=== PATIENT | male | born 1980 | race Caucasian/White ===

== ENCOUNTER → 2019-03-24 | Outpatient (CLI) | payer BC ==
[2019-03-24 08:39] LABS: Basophils # (auto) 0 uL; Basophils % (auto) 0.7 % (0.0-2.0); Eosinophils # (auto) 0.2 uL; Eosinophils % (auto) 3.6 % (0.0-7.0); Hematocrit 47.3 % (41.0-53.0); Hemoglobin 16.3 g/dL (13.5-17.5); Lymphocytes # (auto) 2.4 uL; Lymphocytes % (auto) 38.4 % (10.0-50.0); Mean Corpuscular Hemoglobin 31.1 pg (28.0-32.0); Mean Corpuscular Hgb Conc. 34.4 g/dL (32.0-36.0); Mean Corpuscular Volume 90.4 fL (80.0-100.0); Monocytes # (auto) 0.5 uL; Monocytes % (auto) 8.8 % (0.0-12.0); Neutrophils % (auto) 48.5 % (37.0-80.0); Nucleated Red Blood Cells % 0.1 %; Platelet Count (auto) 237 10^3/uL (140-450); Red Blood Cells 5.23 10^6/uL (4.5-5.90); Red Cell Distribution Width 13.5 % (11.8-14.3); White Blood Cell 6.2 10^3/uL (4.4-10.8)
[2019-03-24 08:50] LABS: Urine Bacteria NONE SEEN /hpf (None Seen); Urine Blood Negative /uL (Negative); Urine Mucus FEW (None Seen); Urine Specific Gravity 1.022 (1.001-1.035); Urine WBC 1 /hpf (0 - 3)
[2019-03-24 09:12] LABS: Alanine Aminotransferase 83 U/L (16-61); Albumin 4.2 g/dL (3.4-5.0); Anion Gap 6 (5-15); Aspartate Aminotransferase 41 U/L (15-37); BUN/Creatinine Ratio 12.1; Blood Urea Nitrogen 13 mg/dL (7-18); Calcium 8.8 mg/dL (8.5-10.1); Carbon Dioxide 28 mmol/L (21-32); Chloride 108 mmol/L (98-107); GFR African American 98 mL/min; GFR Non-African American 81 mL/min; Glucose 101 mg/dL (74-106); Potassium 4.2 mmol/L (3.5-5.1); Sodium 142 mmol/L (136-145); Uric Acid 10.2 mg/dL (3.5-7.2)
[2019-03-24 09:16] LABS: Alkaline Phosphatase 76 U/L (45-117); Bilirubin, Total 0.4 mg/dL (0.2-1.0); Cholesterol 236 mg/dL (< 200); HDL Cholesterol 40 mg/dL (40-59); Total Protein 7.9 g/dL (6.4-8.2); Triglycerides 616 mg/dL (< 150)
== END | disposition home or self-care (01) ==
LOC: LAB 08:10
PROVIDERS: ATTEND Nurse Practitioner
DX: E78.5 Hyperlipidemia, unspecified (principal)
CPT/HCPCS: 36415; 80053; 80061; 81001; 82306; 83036; 83880; 84443; 84550; 85025; 85652

== ENCOUNTER → 2020-11-15 | Outpatient (CLI) | payer BC | END | disposition home or self-care (01) | LOC: LAB 07:35 | DX: Z31.440 Encounter of male for testing for genetic disease carrier status for procreative management (principal) | CPT/HCPCS: 81220 ==

== ENCOUNTER → 2021-02-13 | Outpatient (CLI) | payer BC ==
[2021-02-13 12:51] LABS: Urine WBC None Seen /hpf (0 - 3)
[2021-02-13 12:56] LABS: Basophils # (auto) 0 10 ^3/uL (0-0.2); Basophils % (auto) 0.5 % (0.0-2.0); Eosinophils # (auto) 0.2 10 ^3/uL (0-0.8); Eosinophils % (auto) 2.4 % (0.0-7.0); Hemoglobin 14.3 g/dL (13.5-17.5); Lymphocytes # (auto) 2.4 10 ^3/uL (0.4-5.4); Lymphocytes % (auto) 29.7 % (10.0-50.0); Mean Corpuscular Hemoglobin 30.4 pg (28.0-32.0); Mean Corpuscular Hgb Conc. 34.7 g/dL (32.0-36.0); Mean Corpuscular Volume 87.6 fL (80.0-100.0); Monocytes # (auto) 0.5 10 ^3/uL (0-1.3); Monocytes % (auto) 6.6 % (0.0-12.0); Neutrophils # (auto) 4.9 10 ^3/uL (1.6-8.6); Neutrophils % (auto) 60.8 % (37.0-80.0); Nucleated Red Blood Cells % 0.1 %; Platelet Count (auto) 268 10^3/uL (140-450); Red Blood Cells 4.68 10^6/uL (4.5-5.90); Red Cell Distribution Width 13.1 % (11.8-14.3)
[2021-02-13 12:57] LABS: Urine Bacteria NONE SEEN /hpf (None Seen); Urine Blood Negative /uL (Negative); Urine Specific Gravity 1.026 (1.001-1.035)
[2021-02-13 14:58] LABS: Albumin 4.1 g/dL (3.4-5.0); Calcium 9.8 mg/dL (8.5-10.1); Potassium 3.7 mmol/L (3.5-5.1)
[2021-02-13 15:10] LABS: BUN/Creatinine Ratio 23.1; Bilirubin, Total 0.3 mg/dL (0.2-1.0); Total Protein 7.7 g/dL (6.4-8.2)
== END | disposition home or self-care (01) ==
LOC: LAB 12:39
PROVIDERS: ATTEND Nurse Practitioner
DX: I10 Essential (primary) hypertension (principal); E78.5 Hyperlipidemia, unspecified
CPT/HCPCS: 36415; 80053; 80061; 81001; 85025

== ENCOUNTER → 2021-04-06 | Outpatient (CLI) | payer BC ==
[2021-04-06 09:57] LABS: Albumin 3.7 g/dL (3.4-5.0); BUN/Creatinine Ratio 22.1; Bilirubin, Total 0.5 mg/dL (0.2-1.0); Calcium 8.6 mg/dL (8.5-10.1); Total Protein 7.1 g/dL (6.4-8.2)
== END | disposition home or self-care (01) ==
LOC: LAB 08:43
PROVIDERS: ATTEND Nurse Practitioner
DX: I10 Essential (primary) hypertension (principal); E78.5 Hyperlipidemia, unspecified
CPT/HCPCS: 36415; 80053; 80061

== ENCOUNTER → 2021-09-24 | Outpatient (CLI) | payer BC ==
[2021-09-24 08:42] LABS: Basophils # (auto) 0 10 ^3/uL (0-0.2); Basophils % (auto) 0.6 % (0.0-2.0); Eosinophils # (auto) 0.2 10 ^3/uL (0-0.8); Eosinophils % (auto) 3.3 % (0.0-7.0); Hematocrit 44.9 % (41.0-53.0); Hemoglobin 15.5 g/dL (13.5-17.5); Lymphocytes # (auto) 1.8 10 ^3/uL (0.4-5.4); Lymphocytes % (auto) 24.7 % (10.0-50.0); Mean Corpuscular Hgb Conc. 34.6 g/dL (32.0-36.0); Mean Corpuscular Volume 89.7 fL (80.0-100.0); Monocytes # (auto) 0.5 10 ^3/uL (0-1.3); Monocytes % (auto) 7.2 % (0.0-12.0); Neutrophils # (auto) 4.7 10 ^3/uL (1.6-8.6); Neutrophils % (auto) 64.2 % (37.0-80.0); Nucleated Red Blood Cells % 0.6 %; Red Blood Cells 5.01 10^6/uL (4.5-5.90); Red Cell Distribution Width 13.2 % (11.8-14.3); White Blood Cell 7.4 10^3/uL (4.4-10.8)
[2021-09-24 10:14] LABS: Chloride 108 mmol/L (98-107); Potassium 4.5 mmol/L (3.5-5.1); Sodium 137 mmol/L (136-145)
[2021-09-24 10:24] LABS: Alanine Aminotransferase 46 U/L (16-61); Albumin 3.7 g/dL (3.4-5.0); Alkaline Phosphatase 78 U/L (45-117); Anion Gap 8 (5-15); Aspartate Aminotransferase 26 U/L (15-37); BUN/Creatinine Ratio 17.8; Bilirubin, Total 0.4 mg/dL (0.2-1.0); Blood Urea Nitrogen 16 mg/dL (7-18); Calcium 8.9 mg/dL (8.5-10.1); Carbon Dioxide 21 mmol/L (21-32); Cholesterol 230 mg/dL (< 200); GFR African American 118 mL/min; GFR Non-African American 98 mL/min; Glucose 97 mg/dL (74-106); HDL Cholesterol 43 mg/dL (40-59); Total Protein 7.4 g/dL (6.4-8.2); Triglycerides 489 mg/dL (< 150)
== END | disposition home or self-care (01) ==
LOC: LAB 08:00
PROVIDERS: ATTEND Nurse Practitioner
DX: I10 Essential (primary) hypertension (principal); E78.5 Hyperlipidemia, unspecified
CPT/HCPCS: 36415; 80053; 80061; 85025

== ENCOUNTER → 2022-09-03 | Outpatient (CLI) | payer BC | END | disposition home or self-care (01) | LOC: XYW 07:45 | PROVIDERS: ATTEND Nurse Practitioner Acute Care | DX: I35.8 Other nonrheumatic aortic valve disorders (principal); I11.9 Hypertensive heart disease without heart failure; R07.9 Chest pain, unspecified | CPT/HCPCS: 93306 ==

== ENCOUNTER → 2022-10-17 | Outpatient (CLI) | payer BC ==
[~2022-10-17] VITALS: Ht 172.7 cm; Wt 126.1 kg
== END | disposition home or self-care (01) ==
LOC: XYW 07:31
PROVIDERS: ATTEND Internal Medicine
DX: R07.9 Chest pain, unspecified (principal); I10 Essential (primary) hypertension; E78.5 Hyperlipidemia, unspecified; Z68.41 Body mass index [BMI] 40.0-44.9, adult; Z72.0 Tobacco use
CPT/HCPCS: 78452; 93017; A9500

== ENCOUNTER 2023-02-06 06:59 | Day surgery (SDC) | payer BC ==
[2023-02-03 11:53] LABS: Urine WBC None Seen /hpf (0 - 3)
[2023-02-03 11:59] LABS: Basophils # (auto) 0.1 10 ^3/uL (0-0.2); Basophils % (auto) 0.7 % (0.0-2.0); Eosinophils # (auto) 0.2 10 ^3/uL (0-0.8); Eosinophils % (auto) 1.7 % (0.0-7.0); Hematocrit 45.1 % (41.0-53.0); Hemoglobin 15.5 g/dL (13.5-17.5); Lymphocytes # (auto) 2.3 10 ^3/uL (0.4-5.4); Lymphocytes % (auto) 23.6 % (10.0-50.0); Mean Corpuscular Hemoglobin 29.6 pg (28.0-32.0); Mean Corpuscular Hgb Conc. 34.5 g/dL (32.0-36.0); Mean Corpuscular Volume 85.9 fL (80.0-100.0); Monocytes # (auto) 0.7 10 ^3/uL (0-1.3); Monocytes % (auto) 6.9 % (0.0-12.0); Neutrophils # (auto) 6.7 10 ^3/uL (1.6-8.6); Neutrophils % (auto) 67.1 % (37.0-80.0); Nucleated Red Blood Cells % 0.3 %; Red Blood Cells 5.25 10^6/uL (4.5-5.90); White Blood Cell 9.9 10^3/uL (4.4-10.8)
[2023-02-03 12:23] LABS: Calcium 9.4 mg/dL (8.5-10.1); Potassium 3.9 mmol/L (3.5-5.1)
[2023-02-03 12:24] LABS: INR 0.96 (0.9-1.15); Partial Thromboplastin Time 27.4 sec (24.6-33.4)
[2023-02-03 12:26] LABS: BUN/Creatinine Ratio 14.6 (10.0-20.0)
[2023-02-03 12:27] LABS: Urine Bacteria NONE SEEN /hpf (None Seen); Urine Blood Negative /uL (Negative); Urine Specific Gravity 1.007 (1.001-1.035)
[2023-02-03 12:28] LABS: Bilirubin, Total 0.4 mg/dL (0.2-1.0); Total Protein 7.7 g/dL (6.4-8.2)
[~2023-02-06] VITALS: Ht 172.7 cm; Wt 117.9 kg
[~2023-02-06 06:59] MED LIST: LISI20TA28 PO
[2023-02-06] MEDS ORDERED: KETAMINE 50mg/ML 10ml Vial (500mg/10ml) IV ONE (07:00)
[2023-02-06] MEDS ORDERED: BACITRACIN TOP OINT 1 UD PKG TOP ONE ×2 (07:15→07:35)
[2023-02-06] MEDS ORDERED: GLYCOPYRROLATE 0.2 MG/ML 1ML VIAL ONE (07:54)
[2023-02-06] MEDS ORDERED: LIDOCAINE 1% (LOCAL ANESTH.) PF 5ml SDV ONE (07:54)
[2023-02-06] MEDS ORDERED: ONDANSETRON HCL 4 MG/2 ML VIAL ONE (07:54)
[2023-02-06] MEDS ORDERED: DexAMETHasone SOD PHOS 10MG/1ML VIAL INJ ONE (07:54)
[2023-02-06] MEDS ORDERED: PROPOFOL 10 MG/ML 20 ML IV ONE ×3 (07:54→08:29)
[2023-02-06] MEDS ORDERED: KETOROLAC TROMETH 30 MG/ML 1ML VIAL ONE (07:54)
[2023-02-06] MEDS ORDERED: CIPROFLOXACIN 400MG/200ML 200 ML IV ONE (08:00)
[2023-02-06 09:25] VITALS: BP 106/65
== END 2023-02-06 09:39 | disposition home or self-care (01) ==
LOC: SUR 06:59
PROVIDERS: ATTEND Urology
DX: Z30.2 Encounter for sterilization (principal); Z20.822 Contact with and (suspected) exposure to COVID-19
CPT/HCPCS: 36415; 55250; 80053; 81001; 85025; 85610; 85730; 87086; 88305; J0744; J1100; J1885; J2405; J2704; U0003

== ENCOUNTER 2023-10-29 12:49 | Day surgery (SDC) | payer BC ==
[2023-10-24 09:56] LABS: Basophils # (auto) 0.1 10 ^3/uL (0-0.2); Basophils % (auto) 0.6 % (0.0-2.0); Eosinophils # (auto) 0.3 10 ^3/uL (0-0.8); Eosinophils % (auto) 3.5 % (0.0-7.0); Hematocrit 43.3 % (41.0-53.0); Hemoglobin 14.5 g/dL (13.5-17.5); Lymphocytes # (auto) 2.5 10 ^3/uL (0.4-5.4); Lymphocytes % (auto) 31.4 % (10.0-50.0); Mean Corpuscular Hemoglobin 29.7 pg (28.0-32.0); Mean Corpuscular Hgb Conc. 33.5 g/dL (32.0-36.0); Mean Corpuscular Volume 88.6 fL (80.0-100.0); Monocytes # (auto) 0.6 10 ^3/uL (0-1.3); Monocytes % (auto) 7.9 % (0.0-12.0); Neutrophils # (auto) 4.5 10 ^3/uL (1.6-8.6); Neutrophils % (auto) 56.6 % (37.0-80.0); Nucleated Red Blood Cells % 0.1 %; Red Blood Cells 4.89 10^6/uL (4.5-5.90); Red Cell Distribution Width 12.9 % (11.8-14.3)
[2023-10-24 10:22] LABS: INR 0.94 (0.9-1.15); Partial Thromboplastin Time 26.3 SEC (24.5-34.5); Prothrombin Time 9.9 sec (9.3-11.8)
[2023-10-24 10:23] LABS: Alanine Aminotransferase 37 U/L (7-40); Albumin 4.7 g/dL (3.2-4.8); Alkaline Phosphatase 62 U/L (46-116); Anion Gap 8 (5-15); Aspartate Aminotransferase 19 U/L (13-40); BUN/Creatinine Ratio 13.8 (10.0-20.0); Bilirubin, Total 0.4 mg/dL (0.2-1.0); Blood Urea Nitrogen 12 mg/dL (9-23); Calcium 9.6 mg/dL (8.5-10.1); Carbon Dioxide 26 mmol/L (20-30); Chloride 107 mmol/L (98-107); Glucose 105 mg/dL (74-106); Potassium 4.4 mmol/L (3.5-5.1); Sodium 141 mmol/L (136-145); Total Protein 7.1 g/dL (5.7-8.2)
[~2023-10-29] VITALS: Ht 170.2 cm; Wt 125.6 kg
[~2023-10-29 12:49] MED LIST changes: -LISI20TA28 PO; +LISI20TA56 PO
[2023-10-29] MEDS ORDERED: SODIUM CHLORIDE LOCK 10 ML ONE (12:51)
[2023-10-29] MEDS: MIDAZOLAM HCL 5 MG/ML-1ML VIAL ONE ×3 (15:01→15:08)
[2023-10-29] MEDS: diphenhdrAMINE HCL 50 MG/1 ML VL ONE ×2 (15:01→15:05)
[2023-10-29] MEDS: fentaNYL CITRATE 100 MCG/2 ML VL ONE ×2 (15:01→15:05)
[2023-10-29] MEDS ORDERED: fentaNYL CITRATE 100 MCG/2 ML VL ONE (15:05)
[2023-10-29 15:24] VITALS: TEMP 97.5; O2SAT 99
[2023-10-29 16:00] VITALS: BP 128/73; PULSE 68; RESP 14; O2SAT 98
== END 2023-10-29 16:05 | disposition home or self-care (01) ==
LOC: GI 12:49
PROVIDERS: ATTEND Internal Medicine Gastroenterology
DX: R10.31 Right lower quadrant pain (principal); K63.5 Polyp of colon; K64.8 Other hemorrhoids
CPT/HCPCS: 36415; 45380; 45385; 80053; 85025; 85610; 85730; J1200; J2250; J3010; 99152